=== PATIENT | female | born 1965 | race Two or more races ===

== ENCOUNTER 2020-09-01 07:54 | Outpatient (CLI) | payer OTHER | END 2020-09-01 07:58 | disposition home or self-care (01) | LOC: LAB 07:54 | DX: Z00.00 Encounter for general adult medical examination without abnormal findings (principal); I10 Essential (primary) hypertension; E55.9 Vitamin D deficiency, unspecified ==

== ENCOUNTER 2020-12-10 17:39 | Emergency (ER) | payer OTHER ==
[~2020-12-10] VITALS: Ht 162.6 cm; Wt 60.8 kg
[2020-12-10] MEDS ORDERED: ZYRTEC10 M3 (17:48)
[2020-12-10] MEDS ORDERED: SINGULAIR4 MG (17:48)
== END 2020-12-10 22:00 | disposition home or self-care (01) ==
LOC: ER 17:39
DX: S80.872A Other superficial bite, left lower leg, initial encounter (principal); W54.0XXA Bitten by dog, initial encounter; Y93.89 Activity, other specified; Y92.098 Other place in other non-institutional residence as the place of occurrence of the external cause; Y99.8 Other external cause status

== ENCOUNTER 2021-07-19 08:00 | Outpatient (CLI) | payer OTHER ==
[~2021-07-19 08:00] MED LIST: SINGULAIR4 MG; ZYRTEC10 M3
== END 2021-07-19 08:30 | disposition home or self-care (01) ==
LOC: PPH VACUNA 08:00
PROVIDERS: ATTEND Emergency Medicine Pediatric Emergency Medicine
DX: Z23 Encounter for immunization (principal)

== ENCOUNTER 2022-03-10 09:26 | Emergency (ER) | payer OTHER ==
[~2022-03-10] VITALS: Ht 162.6 cm; Wt 57.2 kg
[~2022-03-10 09:26] MED LIST changes: +ALBUTEROL2.5 MG/3 M IH; +KETO10TA2 PO
[2022-03-10] MEDS ORDERED: ATORVASTATIN CA20 MG PO (09:34)
[2022-03-10] MEDS ORDERED: CAPSAICIN42.5 GM TOP (09:41)
[2022-03-10] MEDS ORDERED: ZOVIRAX800 MG PO (09:41)
== END 2022-03-10 10:04 | disposition home or self-care (01) ==
LOC: ER 09:26
DX: B02.9 Zoster without complications (principal)